=== PATIENT | female | born 1955 | race Caucasian/White ===

== ENCOUNTER → 2021-06-01 | Outpatient (CLI) | payer MEDICARE, OTHER ==
--- NOTE | 2021-06-01 11:05 | Diagnostic Imaging Report ---
INDICATION: Chronic cough for several months. TIME OF EXAM: 10:37 AM No prior studies are available for comparison. There is a thoracolumbar scoliotic curvature. The lungs are clear. No infiltrates are seen. Heart size normal. There is no effusion or pneumothorax detected. IMPRESSION: No acute cardiopulmonary process is detected. Dictated by: Dictated on workstation # [id number]
== END ==
LOC: RAD FS 10:26
PROVIDERS: ATTEND Nurse Practitioner Family
DX: R05.3 Chronic cough (principal)
CPT/HCPCS: 71046

== ENCOUNTER 2022-10-10 09:45 | Emergency (ER) | payer MEDICARE, OTHER ==
[~2022-10-10] VITALS: Ht 149 cm; Wt 53.0 kg
[2022-10-10 10:00] VITALS: BP 176/71
[2022-10-10] MEDS ORDERED: FAMOTIDINE 20 MG (PEPCID) TABLET PO STA (10:03)
[2022-10-10 10:09] LABS: BASOPHILS # (AUTO) 0.1 10^3/uL (0.0-0.1); BASOPHILS % (AUTO) 1 % (0-10); EOSINOPHILS # (AUTO) 0.2 10^3/uL (0.0-0.3); EOSINOPHILS % (AUTO) 3 % (0-10); HEMATOCRIT 41 % (35-52); HEMOGLOBIN 14.3 g/dL (11.5-16.0); LYMPHOCYTES # (AUTO) 1.2 10^3/uL (1.0-4.0); LYMPHOCYTES % (AUTO) 23 % (12-44); MEAN CORPUSCULAR HEMOGLOBIN 32 pg (25-34); MEAN CORPUSCULAR HGB CONC 35 g/dL (32-36); MEAN CORPUSCULAR VOLUME 92 fL (80-99); MEAN PLATELET VOLUME 10.1 fL (9.0-12.2); MONOCYTES # (AUTO) 0.5 10^3/uL (0.0-1.0); MONOCYTES % (AUTO) 10 % (0-12); NEUTROPHILS # (AUTO) 3.1 10^3/uL (1.8-7.8); NEUTROPHILS % (AUTO) 62 % (42-75); PLATELET COUNT 209 10^3/uL (130-400)
--- NOTE | 2022-10-10 10:09 | ED Cardiac General ---
History of Present Illness General Chief Complaint: Chest Pain Stated Complaint: CHEST PAIN Nursing Triage Note: Patient has ambulated to ER with cc of a pinching in her left chest wall. Patient reports that she had been push mowing yesterday and while mowing she developed a "pinching" in her left chest wall. She reports the pain is very intermittant last maybe a few seconds to 2 minutes. She has not taken anything for the pain. Source: patient Exam Limitations: no limitations History of Present Illness Date Seen by Provider: Oct 10, 2022 Time Seen by Provider: 09:49 Initial Comments 67-year-old female with past medical history of hypertension and hyperlipidemia coming in due to chest pain. Its been happening for the past couple days, it is a pinching sensation in the center of her chest. Last for couple minutes of time and goes away. Happened a couple times yesterday, and 3 times today. Prior to these episodes, cannot recall ever having these symptoms before. Denies any prior history of DVT or PE, no lower extremity swelling or pain, no recent surgery, no recent long travel, does not take any hormones, no personal cardiac history including no stenting, does not smoke. She is pain-free at this time. Denies any associated symptoms such as cough, shortness of breath, fever, nausea, vomiting, weakness, numbness, or any other concerns Allergies and Home Medications Allergies Coded Allergies: codeine (Verified Allergy, Unknown, 10/10/22) Patient Home Medication List Home Medication List Reviewed: Yes Review of Systems Review of Systems Constitutional: No fever EENTM: No Symptoms Reported Respiratory: No Symptoms Reported Cardiovascular: See HPI Gastrointestinal: No Symptoms Reported Genitourinary: No Symptoms Reported Musculoskeletal: no symptoms reported Skin: no symptoms reported Psychiatric/Neurological: No Symptoms Reported Endocrine: No Symptoms Reported Hematologic/Lymphatic: No Symptoms Reported All Other Systems Reviewed Negative Unless Noted: Yes Past Tfcbuxz-Bgewok-Nbqefg Hx Patient Social History Tobacco Use?: No Use of E-Cig and/or Vaping dev: No Substance use?: No Alcohol Use?: No Physical Exam Vital Signs Vital Signs - First Documented 10/10/22 10:00 Temp 35.7 Pulse 84 Resp 20 B/P (MAP) 176/71 (106) Pulse Ox 97 O2 Delivery Room Air Capillary Refill : Height, Weight, BMI Height: '" Weight: lbs. oz. kg; 23.00 BMI Method: General Appearance: No Apparent Distress, WD/WN HEENT: PERRL/EOMI, Normal ENT Inspection, Pharynx Normal Neck: Full Range of Motion, Normal Inspection, Non Tender, Supple Respiratory: Chest Non Tender, Lungs Clear, Normal Breath Sounds, No Accessory Muscle Use, No Respiratory Distress Cardiovascular: Regular Rate, Rhythm, No Edema, Normal Peripheral Pulses Gastrointestinal: Normal Bowel Sounds, Non Tender, Soft Extremity: Normal Capillary Refill, Normal Inspection, Normal Range of Motion, Non Tender, No Calf Tenderness, No Pedal Edema Neurologic/Psychiatric: Alert, No Motor/Sensory Deficits, Normal Mood/Affect Skin: Normal Color, Warm/Dry Progress/Results/Core Measures Results/Orders Lab Results Laboratory Tests Test 10/10/22 09:56 10/10/22 10:58 Range/Units White Blood Count 5.0 4.3-11.0 10^3/uL Red Blood Count 4.51 3.80-5.11 10^6/uL Hemoglobin 14.3 11.5-16.0 g/dL Hematocrit 41 35-52 % Mean Corpuscular Volume 92 80-99 fL Mean Corpuscular Hemoglobin 32 25-34 pg Mean Corpuscular Hemoglobin Concent 35 32-36 g/dL Red Cell Distribution Width 11.9 10.0-14.5 % Platelet Count 209 130-400 10^3/uL Mean Platelet Volume 10.1 9.0-12.2 fL Immature Granulocyte % (Auto) 0 % Neutrophils (%) (Auto) 62 42-75 % Lymphocytes (%) (Auto) 23 12-44 % Monocytes (%) (Auto) 10 0-12 % Eosinophils (%) (Auto) 3 0-10 % Basophils (%) (Auto) 1 0-10 % Neutrophils # (Auto) 3.1 1.8-7.8 10^3/uL Lymphocytes # (Auto) 1.2 1.0-4.0 10^3/uL Monocytes # (Auto) 0.5 0.0-1.0 10^3/uL Eosinophils # (Auto) 0.2 0.0-0.3 10^3/uL Basophils # (Auto) 0.1 0.0-0.1 10^3/uL Immature Granulocyte # (Auto) 0.0 0.0-0.1 10^3/uL Prothrombin Time 13.3 12.2-14.7 SEC INR Comment 1.0 0.8-1.4 Activated Partial Thromboplast Time 25 24-35 SEC Sodium Level 134 L 135-145 MMOL/L Potassium Level 4.2 3.6-5.0 MMOL/L Chloride Level 99 98-107 MMOL/L Carbon Dioxide Level 24 21-32 MMOL/L Anion Gap 11 5-14 MMOL/L Blood Urea Nitrogen 11 7-18 MG/DL Creatinine 0.75 0.60-1.30 MG/DL Estimat Glomerular Filtration Rate 86 BUN/Creatinine Ratio 15 Glucose Level 122 H 70-105 MG/DL Calcium Level 9.8 8.5-10.1 MG/DL Corrected Calcium 9.5 8.5-10.1 MG/DL Magnesium Level 2.2 1.6-2.4 MG/DL Total Bilirubin 0.6 0.1-1.0 MG/DL Aspartate Amino Transf (AST/SGOT) 29 5-34 U/L Alanine Aminotransferase (ALT/SGPT) 26 0-55 U/L Alkaline Phosphatase 37 L 40-136 U/L Troponin I < 0.30 <0.30 NG/ML Total Protein 6.4 6.4-8.2 GM/DL Albumin 4.4 3.2-4.5 GM/DL Lipase 50 8-78 U/L My Orders Orders - ARMANDO MONTE MD Cbc With Automated Diff (10/10/22 10:03) Magnesium (10/10/22 10:03) Chest 1 View Ap/Pa Only (10/10/22 10:03) Ekg Tracing (10/10/22 10:03) Comprehensive Metabolic Panel (10/10/22 10:03) Protime With Inr (10/10/22 10:03) Partial Thromboplastin Time (10/10/22 10:03) O2 (10/10/22 10:03) Monitor-Rhythm Ecg Trace Only (10/10/22 10:03) Aspirin Chewable Tablet (Baby Aspirin Ch (10/10/22 10:15) Ed Iv/Invasive Line Start (10/10/22 10:03) Lipase (10/10/22 10:03) Troponin I Fs (10/10/22 10:03) Famotidine Tablet (Pepcid Tablet) (10/10/22 10:03) Antacid Suspension (Mylanta Suspension (10/10/22 10:15) Troponin I Fs (10/10/22 11:00) Medications Given in ED Current Medications Medications Dose Ordered Sig/Michela Route Start Time Stop Time Status Last Admin Dose Admin Al Hydrox/Mg Hydrox/Simethicone 30 ml ONCE ONCE PO 10/10/22 10:15 10/10/22 10:16 DC 10/10/22 10:11 30 ML Aspirin 243 mg ONCE ONCE PO 10/10/22 10:15 10/10/22 10:16 DC 10/10/22 10:10 243 MG Vital Signs/I&O 10/10/22 10:00 Temp 35.7 Pulse 84 Resp 20 B/P (MAP) 176/71 (106) Pulse Ox 97 O2 Delivery Room Air Blood Pressure Mean: 106 Progress Progress Note : Progress Note 67-year-old female with above history coming in due to chest pain. ABCs were intact and vitals were stable on presentation. Physical exam reassuring, specifically no clinical signs of a DVT. She is also very well-appearing clinically. EKG ordered and interpreted by me showing no acute ischemic changes and normal sinus rhythm. An IV was placed and basic labs were obtained and were significant for normal white blood cell count, normal creatinine, negative troponin x2. She is low risk for PE per [place] criteria, I think it is highly unlikely she has a PE. ACS sounds unlikely given the story as well as the negative work-up. Chest x-ray ordered and interpreted by me showing no obvious pneumothorax, normal cardiac silhouette, normal mediastinum. Symptoms not consistent with dissection. She was given aspirin here initially, and did have a couple episodes again with a lasted a few seconds to minutes. Likely musculoskeletal or GI in origin. I believe she stable for discharge with outpatient follow-up. She was sent home with strict return precautions. We will have her follow-up with cardiology as well for repeat evaluation. Initial ECG Impression Date: Oct 10, 2022 Initial ECG Impression Time: 09:52 Initial ECG Rate: 67 Initial ECG Rhythm: Normal Sinus Comment Narrow QRS, normal axis, no significant ST changes or T wave abnormalities Diagnostic Imaging Diagonstic Imaging: Xray (chest) Comments [facility]. [place], [place] NAME: FABIO GARCIAJUAN A Alvares [facility] REC#: [id number] PT STATUS: REG ER : 1955 PHYSICIAN: ARMANDO MONTE MD ADMIT DATE: 10/10/22/ER FS Draft Date of Exam:10/10/22 CHEST 1 VIEW AP/PA ONLY INDICATION: Chest pain. TECHNIQUE/COMPARISON: A portable AP upright view of the chest was obtained. Comparison is made to the study of 06/01/2021. FINDINGS: Heart size and pulmonary vascularity are within normal limits. The lungs are clear bilaterally. There is persistent right convexity curvature and spondylosis of the thoracic spine. IMPRESSION: Unremarkable chest. Dictated on workstation # [id number] Dict: 10/10/22 1025 Trans: 10/10/22 1027 [id number] Interpreted by: ELIDA DELCID MD Electronically signed by: Departure Impression Primary Impression: Chest pain Qualified Codes: R07.82 - Intercostal pain Disposition: 01 HOME, SELF-CARE Condition: Stable Departure-Patient Inst. Decision time for Depature: 11:45 Referrals: JENNYFER MCKEON APRN (PCP) [facility] Care Phys[place] [facility] [place] Primary Care Physician FERNANDA WHITE MD FACP [facility] BELLO MATUTE MD Patient Instructions: Chest Pain (DC) Add. Discharge Instructions: It does not appear to be a life-threatening cause of chest pain based on our evaluation in the ER today. It would still be prudent to follow-up with a nuclear fuel processing technician for repeat evaluation. Dr. Whiet or Dr. Matute would be two that you could follow up with in [place]. If your evaluation with him is normal, and you continue to have discomfort, it may be a good idea to then get a GI specialist follow-up from your PCP. Work/School Note: Work Release Form Date Seen in the Emergency Department: Oct 10, 2022 Return to Work: Oct 11, 2022 Restrictions: No Restrictions ARMANDO MONTE MD Oct 10, 2022 10:09
[2022-10-10] MEDS ORDERED: ASPIRIN 81 MG CHEW (CHILDREN'S ASA) PO ONE (10:15)
[2022-10-10] MEDS ORDERED: ANTACID SUSP 30 ML UDC (MYLANTA) PO ONE (10:15)
[2022-10-10 10:21] LABS: PROTHROMBIN TIME PATIENT 13.3 SEC (12.2-14.7)
--- NOTE | 2022-10-10 10:27 | Diagnostic Imaging Report ---
INDICATION: Chest pain. TECHNIQUE/COMPARISON: A portable AP upright view of the chest was obtained. Comparison is made to the study of 06/01/2021. FINDINGS: Heart size and pulmonary vascularity are within normal limits. The lungs are clear bilaterally. There is persistent right convexity curvature and spondylosis of the thoracic spine. IMPRESSION: Unremarkable chest. Dictated by: Dictated on workstation # [id number]
[2022-10-10 10:29] LABS: ALANINE AMINOTRANSFERASE 26 U/L (0-55); ALBUMIN 4.4 GM/DL (3.2-4.5); ALKALINE PHOSPHATASE 37 U/L (40-136); BILIRUBIN,TOTAL 0.6 MG/DL (0.1-1.0); BUN/CREATININE RATIO 15; CALCIUM 9.8 MG/DL (8.5-10.1); CARBON DIOXIDE 24 MMOL/L (21-32); CHLORIDE 99 MMOL/L (98-107); CREATININE SERUM 0.75 MG/DL (0.60-1.30); GFR ESTIMATED 86; GLUCOSE 122 MG/DL (70-105); MAGNESIUM 2.2 MG/DL (1.6-2.4); POTASSIUM 4.2 MMOL/L (3.6-5.0); SODIUM 134 MMOL/L (135-145); TOTAL PROTEIN 6.4 GM/DL (6.4-8.2)
[2022-10-10 11:01] LABS: LIPASE 50 U/L (8-78)
== END 2022-10-10 11:50 | disposition home or self-care (01) ==
LOC: EDUNIT# 09:45 → ER FS 09:46
DX: R07.89 Other chest pain (principal)
CPT/HCPCS: 36415; 71045; 80053; 83690; 83735; 84484; 85025; 85610; 85730; 93005; 93041